=== PATIENT | male | born 1985 | race Asian ===

== ENCOUNTER 2016-10-19 15:34 | Inpatient (IN) | payer MEDICAID ==
[~2016-10-19] VITALS: Ht 170.2 cm; Wt 54.0 kg
[2016-10-19] MEDS ORDERED: HALOPERIDOL 5 MG TABLET PO PRN (18:00)
[2016-10-19] MEDS ORDERED: ZOLPIDEM TARTRATE 10 MG TABLET PO PRN (18:00)
[2016-10-19] MEDS ORDERED: PALI234D IM (18:11)
[2016-10-19] MEDS ORDERED: BENZ1TAB10 PO (18:11)
[2016-10-19] MEDS ORDERED: CLON1 PO (18:11)
[2016-10-19] MEDS ORDERED: TRAZ-144 PO (18:11)
[2016-10-19 19:02] VITALS: BP 112/73
[2016-10-19] MEDS: LORazepam 2 MG TABLET PO PRN (20:44)
[2016-10-20 06:31] VITALS: BP 124/61
[2016-10-20 08:31] VITALS: BP 107/68
[2016-10-20 08:34] LABS: BASOPHILS % (AUTO) 0.2 % (0.0-2.0); EOSINOPHILS % (AUTO) 0.9 % (1.0-6.0); HEMATOCRIT 40.9 % (41-53); HEMOGLOBIN 13.3 g/dL (13.5-17.5); LYMPHOCYTES # (AUTO) 0.8 K/uL (1.0-4.8); LYMPHOCYTES % (AUTO) 17.4 % (22.0-44.0); MEAN CORPUSCULAR HEMOGLOBIN 26.6 pg (26.0-34.0); MEAN CORPUSCULAR HGB CONC 32.6 G/dL (31.0-37.0); MEAN CORPUSCULAR VOLUME 82 fL (80-100); MONOCYTES # (AUTO) 0.3 K/uL (0.1-1.0); MONOCYTES % (AUTO) 6.7 % (2.0-9.0); NEUTROPHILS # (AUTO) 3.3 K/uL (1.8-7.7); NEUTROPHILS % (AUTO) 74.8 % (40.0-70.0); PLATELET COUNT (AUTO) 240 K/uL (150-450); RED CELL DISTRIBUTION WIDTH 13.1 % (11.5-14.5); WHITE BLOOD COUNT (AUTO) 4.4 K/uL (4.5-11.0)
[2016-10-20 09:00] LABS: ALANINE AMINOTRANSFERASE 23 U/L (12-78); ALBUMIN 4.1 g/dL (3.4-5.0); ANION GAP 9 mmol/L (8-16); CALCIUM, TOTAL 8.8 mg/dL (8.8-10.5); CARBON DIOXIDE 29 mmol/L (22-29); CHLORIDE 104 mmol/L (98-107); CREATININE 0.85 mg/dL (0.60-1.30); GLOMERULAR FILTR. RATE CALC > 60 mL/min (>60); SODIUM SERUM 142 mmol/L (136-145); TOTAL PROTEIN, SERUM 7.4 g/dL (6.4-8.2); UREA NITROGEN, BLOOD 11 mg/dL (7-18)
[2016-10-20] MEDS: LORazepam 2 MG TABLET PO PRN (09:25)
[2016-10-20 09:32] LABS: ASPARTATE AMINOTRANSFERASE 16 U/L (15-37); BILIRUBIN,TOTAL 0.9 mg/dL (0.1-1.0)
[2016-10-20 09:33] LABS: CHOL/HDL RATIO 2.3 (4.2-7.3); THYROID STIMULATING HORMONE 1.06 uIU/mL (0.36-3.74)
[2016-10-20 10:13] LABS: HEMOGLOBIN A1C 5.4 % (4.5-6.2)
[2016-10-20] MEDS ORDERED: IBUPROFEN 400 MG TABLET PO PRN (10:30)
[2016-10-20] MEDS ORDERED: ACETAMINOPHEN 325 MG TABLET PO PRN (10:30)
[2016-10-20 16:00] VITALS: BP 121/70
[2016-10-21 06:20] VITALS: BP 117/63
[2016-10-21 08:23] VITALS: BP 122/64
[2016-10-21] MEDS ORDERED: PALIPERIDONE PALMITATE 234 MG/1.5 ML SYRINGE IM SCH (09:00)
[2016-10-21] MEDS: LORazepam 2 MG TABLET PO PRN (09:13)
[2016-10-21] MEDS: BENZTROPINE MESYLATE 1 MG TABLET PO SCH ×2 (09:13→16:37)
[2016-10-21] MEDS: DIVALPROEX SODIUM 500 MG DR TABLET PO SCH ×2 (09:13→16:37)
[2016-10-21 16:40] VITALS: BP 108/60
[2016-10-22 06:36] VITALS: BP 114/69
[2016-10-22 08:45] VITALS: BP 103/57
[2016-10-22] MEDS: BENZTROPINE MESYLATE 1 MG TABLET PO SCH ×2 (09:14→16:42)
[2016-10-22] MEDS: DIVALPROEX SODIUM 500 MG DR TABLET PO SCH ×2 (09:14→16:42)
[2016-10-22 16:11] VITALS: BP 118/66
[2016-10-22] MEDS: LORazepam 2 MG TABLET PO PRN (16:42)
[2016-10-23 00:29] VITALS: BP 122/66
[2016-10-23 08:34] VITALS: BP 101/62
[2016-10-23] MEDS: BENZTROPINE MESYLATE 1 MG TABLET PO SCH ×2 (09:03→16:14)
[2016-10-23] MEDS: DIVALPROEX SODIUM 500 MG DR TABLET PO SCH ×2 (09:03→16:14)
[2016-10-23] MEDS: LORazepam 2 MG TABLET PO PRN (16:14)
[2016-10-23 16:22] VITALS: BP 118/75
[2016-10-24 05:53] VITALS: BP 110/74
[2016-10-24 08:52] VITALS: BP 81/78
[2016-10-24] MEDS: DIVALPROEX SODIUM 500 MG DR TABLET PO SCH ×2 (11:25→16:37)
[2016-10-24] MEDS: BENZTROPINE MESYLATE 1 MG TABLET PO SCH ×2 (11:25→16:37)
[2016-10-24] MEDS: LORazepam 2 MG TABLET PO PRN (11:25)
[2016-10-24] MEDS ORDERED: DIVA500T35 PO (11:57)
[2016-10-24 16:00] VITALS: BP 108/66
== END 2016-10-24 17:45 | disposition home or self-care (01) | DRG 750 ==
LOC: B3A 17:50
PROVIDERS: ADMIT Psychiatry & Neurology Psychiatry; ATTEND Psychiatry & Neurology Psychiatry
DX: F20.0 Paranoid schizophrenia (principal); D64.9 Anemia, unspecified; R00.0 Tachycardia, unspecified; Z79.899 Other long term (current) drug therapy
CPT/HCPCS: 83036; 84439; 84443; 87081